=== PATIENT | male | born 1995 | race African-American/Black ===

== ENCOUNTER 2020-12-07 00:08 | Emergency (ER) | payer MEDICAID, OTHER ==
[~2020-12-07] VITALS: Ht 195.6 cm; Wt 79.0 kg
[2020-12-07 00:13] VITALS: BP 128/70
== END 2020-12-07 02:38 | disposition left against medical advice (07) ==
LOC: ER 00:08
DX: Z53.21 Procedure and treatment not carried out due to patient leaving prior to being seen by health care provider (principal); I49.9 Cardiac arrhythmia, unspecified
CPT/HCPCS: 93005